=== PATIENT | female | born 1970 | race Hispanic/Latino ===

== ENCOUNTER 2016-11-23 12:18 | Emergency (ER) | payer SELFPAY ==
[2016-11-23 12:33] VITALS: BP 126/71; PULSE 77; O2SAT 98
[2016-11-23] MEDS ORDERED: NITRO-BID 2% UD PACKETS TOP ONE (12:49)
[2016-11-23] MEDS ORDERED: BABY ASPIRIN 81 MG CHEW PO ONE (12:49)
[2016-11-23 12:56] LABS: BASOPHIL % 0.2 % (0.0-0.4); Eosinophil % 1.3 % (0.00-5.0); Granulocytes % 58.4 % (36.0-66.0); Lymphocytes % 32.4 % (24.0-44.0); Mean Cell Volume 78.8 fl (78-100); Mean Corpuscular Hemoglobin 25.5 pg (26-32); Mean Platelet Volume 10.8 fl (6-9.5); Monocytes % 7.7 % (0.0-12.0); Platelet Count 223 K/mm3 (150-450); Red Blood Count 4.82 M/mm3 (4.1-5.4); Red Cell Distribution Width 16.3 % (11.5-14.0); White Blood Count 6.2 K/mm3 (4.0-10.5)
[2016-11-23 13:00] LABS: INR 1.05 (0.8-3.0); PROTIME 11.7 SECONDS (9.95-12.35)
[2016-11-23] MEDS ORDERED: Sodium Chloride 0.9% 1000 ML 1,000 ML IV SCH (13:00)
[2016-11-23 13:02] LABS: ANION GAP 15.9 MEQ/L (5-15); BLOOD UREA NITROGEN 11 mg/dL (9-20); CHLORIDE 106 mEq/L (98-107); Carbon Dioxide 21.8 mEq/L (21-32); Glucose 79 MG/DL (70-110); Potassium 3.8 mEq/L (3.5-5.1); SODIUM 140 mEq/L (136-145)
--- NOTE | 2016-11-23 13:04 | ERPHSYRPT ---
- History of Present Illness Time Seen by Provider: 11/23/16 12:40 Historian: patient, family Exam Limitations: clinical condition Patient Subjective Stated Complaint: ems called out for chest pain. 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 pulses equal bialteral radius, pupils perrla 3, lung sounds clear, no edema noted Physician History: PATIENT WITH HISTORY OF CORONARY ARTERY DISEASE, COMPLAINS OF ANTERIOR CHEST PAINS PAST FEW DAYS. HAS PAIN UPON INSPIRATION AND BENDING, TWISTING OF TORSO. HAS BEEN OFF CARDIAC MEDICATIONS FOR 2 MONTHS. DENIES DYSPNEA, DIAPHORESIS, PALPITATIONS. OUT OF STATE [facility] CONFIRMS MEDICATIONS NORCO, NAPROSYN. Timing/Duration: day(s) Quality: stabbing Location: substernal, central Chest Pain Radiation: no radiation Severity of Pain-Max: moderate Severity of Pain-Current: moderate Modifying Factors: Improves With: change in position Associated Symptoms: hurts to breathe Aspirin Treatment Today: 325 mg x 1, provided by ED Allergies/Adverse Reactions: No Known Drug Allergies Allergy (Unverified 11/23/16 12:24) Hx Tetanus, Diphtheria Vaccination/Date Given: No Hx Influenza Vaccination/Date Given: No Hx Pneumococcal Vaccination/Date Given: No Immunizations Up to Date: No - Past Medical History Pertinent Past Medical History: Yes Cardiac History: Angina, Myocardial Infarction ([place]) - Past Surgical History Past Surgical History: Yes Female Surgical History: Tubal Ligation - Social History Smoking Status: Never smoker Exposure to second hand smoke: No Drug Use: none - Nursing Vital Signs Nursing Vital Signs: Initial Vital Signs Pulse Rate [Right Radial] 80 Pulse Rate 77 Respiratory Rate 16 Blood Pressure [Right Arm] 126/71 Pain Intensity 6 - Physical Exam General Appearance: no apparent distress, alert Eye Exam: PERRL/EOMI, eyes nml inspection Ears, Nose, Throat Exam: normal ENT inspection, moist mucous membranes Neck Exam: normal inspection, non-tender, supple, full range of motion Respiratory Exam: normal breath sounds, chest tenderness (PARASTERNAL TENDERNESS T-2 TO T5), lungs clear, No respiratory distress Cardiovascular Exam: regular rate/rhythm, normal heart sounds Gastrointestinal/Abdomen Exam: soft, No tenderness, No mass Back Exam: normal inspection, No CVA tenderness, No vertebral tenderness Extremity Exam: normal inspection, normal range of motion Neurologic Exam: alert, oriented x 3, cooperative, normal mood/affect, sensation nml, No motor deficits Skin Exam: normal color, warm, dry SpO2 Interpretation: normal SpO2: 98 Oxygen Delivery: Room Air - Course EKG Interpreted by Me: RATE, Sinus Rhythm - Radiology Exams Chest X-ray Interpretation: Reviewed by me Ordered Tests: Active Orders 24 hr Category Date Time Status EKG-ER Only STAT Care 11/23/16 12:49 Active Oxygen-ED Only NASAL CANNULA 2 lpm Care 11/23/16 12:49 Active CHEST 1 VIEW (PORTABLE) Stat Exams 11/23/16 12:49 Taken BMP Stat Lab 11/23/16 12:45 Completed CBC W DIFF Stat Lab 11/23/16 12:45 Completed D-DIMER QUANTITATION Stat Lab 11/23/16 12:45 Completed PROTIME WITH INR Stat Lab 11/23/16 12:45 Completed TROPONIN Q3H Lab 11/23/16 12:45 Received TROPONIN Q3H Lab 11/23/16 13:00 Completed TROPONIN Q3H Lab 11/23/16 16:00 Ordered TROPONIN Q3H Lab 11/23/16 19:00 Ordered TROPONIN Q3H Lab 11/24/16 01:00 Ordered Medication Summary Generic Name Dose Route Start Last Admin Trade Name Freq PRN Reason Stop Dose Admin Sodium Chloride 1,000 mls @ 100 mls/hr 11/23/16 13:00 11/23/16 13:13 Sodium Chloride 0.9% 1000 Ml IV 12/23/16 12:59 100 mls/hr .Q10H JOHNY Administration Ceftriaxone Sodium/Dextrose 1 g in 50 mls @ 100 mls/hr 11/23/16 13:31 Rocephin 1 Gm-D5w 50 Ml Bag IV 11/23/16 14:00 STAT STA Discontinued Medications Generic Name Dose Route Start Last Admin Trade Name Freq PRN Reason Stop Dose Admin Aspirin 324 mg 11/23/16 12:49 11/23/16 13:11 Baby Aspirin 81 Mg Chew PO 11/23/16 12:50 Not Given STAT ONE Ketorolac Tromethamine 30 mg 11/23/16 13:12 11/23/16 13:13 Toradol 30 Mg Injection IV 11/23/16 13:13 30 mg STAT ONE Administration Ketorolac Tromethamine Confirm 11/23/16 13:12 Toradol 30 Mg Injection Administered 11/23/16 13:13 Dose 30 mg .ROUTE .STK-MED ONE Nitroglycerin 1 gm 11/23/16 12:49 11/23/16 13:14 Nitro-Bid 2% Ud Packets TOP 11/23/16 12:50 Not Given STAT ONE Lab/Rad Data: Laboratory Result Diagrams 11/23/16 12:45 11/23/16 12:45 Laboratory Results 11/23/16 11/23/16 11/23/16 Range/Units 13:00 12:45 12:45 WBC (4.0-10.5) K/mm3 RBC (4.1-5.4) M/mm3 Hgb (12.0-16.0) gm/dl Hct (35-47) % MCV (78-100) fl MCH (26-32) pg MCHC (32-36) g/dl RDW (11.5-14.0) % Plt Count (150-450) K/mm3 MPV (6-9.5) fl Gran % (36.0-66.0) % Lymphocytes % (24.0-44.0) % Monocytes % (0.0-12.0) % Eosinophils % (0.00-5.0) % Basophils % (0.0-0.4) % Basophils # (0-0.4) INR 1.05 (0.8-3.0) D-Dimer 435.81 (0.00-500.00) ng/mL Sodium 140 (136-145) mEq/L Potassium 3.8 (3.5-5.1) mEq/L Chloride 106 (98-107) mEq/L Carbon Dioxide 21.8 (21-32) mEq/L Anion Gap 15.9 H (5-15) MEQ/L BUN 11 (9-20) mg/dL Creatinine 0.69 (0.55-1.30) mg/dl Estimated GFR > 60 ML/MIN Glucose 79 (70-110) MG/DL Calcium 9.3 (8.5-10.1) mg/dL Troponin I < 0.017 (0.000-0.056) ng/ml 11/23/16 Range/Units 12:45 WBC 6.2 (4.0-10.5) K/mm3 RBC 4.82 (4.1-5.4) M/mm3 Hgb 12.3 (12.0-16.0) gm/dl Hct 38.0 (35-47) % MCV 78.8 (78-100) fl MCH 25.5 L (26-32) pg MCHC 32.4 (32-36) g/dl RDW 16.3 H (11.5-14.0) % Plt Count 223 (150-450) K/mm3 MPV 10.8 H (6-9.5) fl Gran % 58.4 (36.0-66.0) % Lymphocytes % 32.4 (24.0-44.0) % Monocytes % 7.7 (0.0-12.0) % Eosinophils % 1.3 (0.00-5.0) % Basophils % 0.2 (0.0-0.4) % Basophils # 0.01 (0-0.4) INR (0.8-3.0) D-Dimer (0.00-500.00) ng/mL Sodium (136-145) mEq/L Potassium (3.5-5.1) mEq/L Chloride (98-107) mEq/L Carbon Dioxide (21-32) mEq/L Anion Gap (5-15) MEQ/L BUN (9-20) mg/dL Creatinine (0.55-1.30) mg/dl Estimated GFR ML/MIN Glucose (70-110) MG/DL Calcium (8.5-10.1) mg/dL Troponin I (0.000-0.056) ng/ml - Progress Progress Note: 11/23/16 13:34 PATIENT GIVEN TORADOL 30MG IV Counseled pt/family regarding: lab results, diagnosis, need for follow-up - Departure Time of Disposition: 13:53 Departure Disposition: Home Clinical Impression: ACUTE CHEST WALL PAIN Condition: Stable Critical Care Time: No Additional Instructions: FOLLOWUP WITH YOUR FAMILY PHYSICIAN IN 1 WEEK. ANTIBIOTIC ZITHROMAX 250MG, TAKE 2 TABLETS ON DAY 1 THEN 1 TABLET DAILY FOR 4 DAYS. TORADOL 10MG EVERY 6 HOURS FOR PAIN NEEDED. RETURN TO EMERGENCY FOR SHORTNESS OF BREATH, DIAPHORESIS ASSOCIATED WITH CHEST PAIN. Prescriptions: Ketorolac Tromethamine [Toradol] 10 mg PO Q6HPRN PRN #20 tablet PRN Reason: Pain Azithromycin 250 mg [Zithromax 250 MG TABLET] 250 mg PO ZPACK #6 tablet
[2016-11-23] MEDS ORDERED: Sodium Chloride 0.9% 1000 ML 1,000 ML ONE (13:12)
[2016-11-23] MEDS ORDERED: TORAdol 30 mg Injection IV ONE (13:12)
[2016-11-23] MEDS ORDERED: TORAdol 30 mg Injection ONE (13:12)
[2016-11-23] MEDS ORDERED: ROCEPHIN 1 Gm-D5w 50 ml Bag** 1 G/50 ML IVPB IV STA (13:31)
[2016-11-23] MEDS ORDERED: ROCEPHIN 1 Gm-D5w 50 ml Bag** 1 G/50 ML IVPB IV ONE (13:33)
--- NOTE | 2016-11-23 18:47 | XRAY ---
Indication: Chest pain. Comparison: None Portable chest demonstrates subtle right base infiltrate versus atelectasis. Remaining heart, lungs, and bony thorax normal.
== END 2016-11-23 14:00 | disposition home or self-care (01) ==
LOC: ED 12:18
DX: R07.89 Other chest pain (principal); I25.2 Old myocardial infarction
CPT/HCPCS: 36415; 71010; 80048; 84484; 85025; 85379; 85610; 93005; 96360; 96361; 96365; 96374; 99284; J0696; J1885